=== PATIENT | female | born 1960 | race African-American/Black ===

== ENCOUNTER 2018-05-30 09:01 | Emergency (ER) | payer OTHER, SELFPAY ==
[~2018-05-30] VITALS: Ht 165.1 cm; Wt 75.0 kg
[~2018-05-30 09:01] MED LIST: VICOT
[2018-05-30 09:11] VITALS: BP 120/50
== END 2018-05-30 11:01 | disposition left against medical advice (07) ==
LOC: EMS 09:04
DX: S61.412A Laceration without foreign body of left hand, initial encounter (principal); W45.8XXA Other foreign body or object entering through skin, initial encounter; Y93.89 Activity, other specified; Y92.89 Other specified places as the place of occurrence of the external cause; Y99.8 Other external cause status; Z53.21 Procedure and treatment not carried out due to patient leaving prior to being seen by health care provider